=== PATIENT | female | born 1980 | race Caucasian/White ===

== ENCOUNTER 2019-04-13 22:42 | Emergency (ER) | payer MEDICAID ==
[~2019-04-13] VITALS: Ht 162.6 cm; Wt 68.0 kg
[2019-04-13 22:50] VITALS: BP 136/87
--- NOTE | 2019-04-13 22:50 | NUR ---
TO BED # 11 BED AMBULATORY WITH DAUGHTER
--- NOTE | 2019-04-13 22:58 | NUR ---
Dr. Dahl examining patient.
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
[2019-04-14 00:40] VITALS: BP 133/84
--- NOTE | 2019-04-14 00:40 | NUR ---
Patient discharged with v/s stable. Written and verbal after care instructions given and explained. Patient verbalized understanding. Ambulatory with steady gait. All questions addressed prior to discharge. Advised to follow up with PMD.
== END 2019-04-14 00:40 | disposition home or self-care (01) ==
LOC: MED 22:42
DX: S93.401A Sprain of unspecified ligament of right ankle, initial encounter (principal); Z88.0 Allergy status to penicillin; V49.49XA Driver injured in collision with other motor vehicles in traffic accident, initial encounter; Y93.89 Activity, other specified; Y92.488 Other paved roadways as the place of occurrence of the external cause; Y99.8 Other external cause status
CPT/HCPCS: 73610; 99283; Q0092